=== PATIENT | male | born 1970 | race African-American/Black ===

== ENCOUNTER 2022-07-19 18:14 | Observation (INO) | payer OTHER ==
[2022-07-19] MEDS ORDERED: SODIUM CHLORIDE 1,000 ML IV STA (18:32)
[2022-07-19] MEDS ORDERED: ALBUTEROL SO4 2.5/IPRATROPIUM 0.5 INH SOL 3 ML VIAL.NEB. NEB ONE ×4 (18:32→20:42)
[2022-07-19] MEDS ORDERED: MAGNESIUM SULF 50% (8.12 MEQ/2 ML-1 GM VIAL) IVPB ONE (18:32)
[2022-07-19] MEDS ORDERED: TERBUTALINE SULFATE 1 MG/1 ML VIAL SQ ONE (18:32)
[2022-07-19] MEDS ORDERED: MAGNESIUM SULFATE IN WATER 2 GM/50 ML IVPB IVPB ONE (18:36)
[2022-07-19] MEDS: ALBUTEROL SO4 2.5/IPRATROPIUM 0.5 INH SOL 3 ML VIAL.NEB. NEB SCH ×4 (18:44→19:50)
[2022-07-19] MEDS ORDERED: DEXAMETHASONE SOD PHOSPHATE 10 MG/1 ML VIAL IVPUSH SCH (18:45)
[2022-07-19] MEDS ORDERED: DEXAMETHASONE SOD PHOSPHATE/PF 10 MG/ML SDV ONE (19:02)
[2022-07-19 19:18] LABS: HEMATOCRIT 48.5 % (35.4-49); HEMOGLOBIN 15.6 G/dL (11.7-16.9); MCH 21.6 pg (25.7-33.7); MCHC 32.2 g/dl (32.0-35.9); MEAN CELL VOLUME 67.1 fl (80-96); MEAN PLT VOLUME 9.3 fl (7.5-11.1); PLATELET COUNT 210.6 10^3/uL (134-434); WHITE BLOOD COUNT 9.9 10^3/uL (4.0-10.8)
[2022-07-19 19:24] LABS: ALBUMIN 4.3 g/dl (3.4-5.0); BILIRUBIN,TOTAL 0.6 mg/dl (0.2-1); CALCIUM 9.1 mg/dl (8.5-10); CREATININE 0.8 mg/dl (0.55-1.3); POTASSIUM 4.5 mmol/L (3.5-5.1); TOT PROT 7.8 g/dl (6.4-8.2)
[2022-07-19 19:28] LABS: RBC 7.23 10^6/uL (4.00-5.60)
[2022-07-19] MEDS ORDERED: morphine CARPU-JECT 2 MG/1 ML DISP.SYRIN IVPUSH ONE (19:37)
[2022-07-19 19:58] LABS: PLATELET ESTIMATE ADEQUATE
[2022-07-19 20:21] LABS: VENOUS BASE EXCESS 0.3 mmol/L (-2-2); VENOUS O2 SATURATION 40.7 % (70-80); VENOUS PH 7.206 (7.310-7.410)
[2022-07-19 20:25] LABS: VENOUS PCO2 80.4 mmHg (38-52)
[2022-07-19 20:35] LABS: N-TERMINAL BNP 7.5 pg/ml (5-125)
[2022-07-19] MEDS ORDERED: morphine SULFATE 4 MG/ML VIAL ONE (20:41)
[2022-07-19 23:40] LABS: VENOUS BASE EXCESS -1.2 mmol/L (-2-2); VENOUS O2 SATURATION 43.2 % (70-80); VENOUS PCO2 49.5 mmHg (38-52); VENOUS PH 7.328 (7.310-7.410)
[2022-07-19] MEDS ORDERED: ALBUTEROL SO4 2.5/IPRATROPIUM 0.5 INH SOL 3 ML VIAL.NEB. NEB PRN (23:49)
[2022-07-20 00:45] VITALS: BMI 22.1
[2022-07-20] MEDS: methylPREDNISolone NA SUCC 40 MG/1 ML VIAL IVPUSH SCH ×4 (03:00→21:37)
[2022-07-20 08:08] LABS: CALCIUM 8.7 mg/dl (8.5-10); CREATININE 0.8 mg/dl (0.55-1.3); MAGNESIUM 1.9 mg/dL (1.8-2.4); POTASSIUM 4.3 mmol/L (3.5-5.1)
[2022-07-20] MEDS: PANTOPRAZOLE 40 MG TABLET PO SCH (08:59)
[2022-07-20 09:41] LABS: HEMATOCRIT 36.9 % (35.4-49); HEMOGLOBIN 12.5 GM/dL (11.7-16.9); LYMPH % 7.8 % (8-40); MCH 21.7 pg (25.7-33.7); MCHC 33.9 g/dl (32.0-35.9); MEAN CELL VOLUME 64.1 fl (80-96); MEAN PLT VOLUME 10.2 fl (7.5-11.1); MONO % 1.5 % (3.8-10.2); NEUT % 90.7 % (42.8-82.8); PLATELET COUNT 207 10^3/uL (134-434); RBC 5.75 M/mm3 (4.00-5.60); RDW 15.6 % (11.9-15.9); WHITE BLOOD COUNT 8.7 K/mm3 (4.0-10.0)
[2022-07-20 11:56] LABS: ANISOCYTOSIS 3+; MACROCYTOSIS 0
[2022-07-20] MEDS: ALBUTEROL SO4 2.5/IPRATROPIUM 0.5 INH SOL 3 ML VIAL.NEB. NEB SCH ×2 (15:46→21:38)
[2022-07-20] MEDS: DOCUSATE SODIUM 100 MG CAPSULE (FP) PO SCH (21:41)
[2022-07-20 21:51] VITALS: RESP 18
[2022-07-20] MEDS ORDERED: MONTELUKAST NA 10 MG TABLET PO SCH (22:00)
[2022-07-21] MEDS: methylPREDNISolone NA SUCC 40 MG/1 ML VIAL IVPUSH SCH ×2 (02:27→09:24)
[2022-07-21] MEDS: ALBUTEROL SO4 2.5/IPRATROPIUM 0.5 INH SOL 3 ML VIAL.NEB. NEB SCH ×2 (02:27→09:24)
[2022-07-21] MEDS: DOCUSATE SODIUM 100 MG CAPSULE (FP) PO SCH (06:34)
[2022-07-21 07:59] LABS: ALBUMIN 3.5 g/dl (3.4-5.0); BILIRUBIN,TOTAL 0.4 mg/dl (0.2-1); CALCIUM 9.1 mg/dl (8.5-10); CREATININE 0.8 mg/dl (0.55-1.3); MAGNESIUM 1.9 mg/dL (1.8-2.4); POTASSIUM 4.9 mmol/L (3.5-5.1); TOT PROT 6.6 g/dl (6.4-8.2)
[2022-07-21] MEDS: PANTOPRAZOLE 40 MG TABLET PO SCH (09:24)
[2022-07-21 09:52] LABS: BASO % 0.1 % (0-2.0); HEMATOCRIT 37.9 % (35.4-49); HEMOGLOBIN 12.7 GM/dL (11.7-16.9); LYMPH % 6.7 % (8-40); MCH 21.3 pg (25.7-33.7); MCHC 33.4 g/dl (32.0-35.9); MEAN CELL VOLUME 63.7 fl (80-96); MEAN PLT VOLUME 10.1 fl (7.5-11.1); MONO % 3.8 % (3.8-10.2); NEUT % 89.4 % (42.8-82.8); PLATELET COUNT 213 10^3/uL (134-434); RBC 5.95 M/mm3 (4.00-5.60); RDW 15.4 % (11.9-15.9); WHITE BLOOD COUNT 11.7 K/mm3 (4.0-10.0)
[2022-07-21] MEDS ORDERED: ENOXAPARIN NA (PORCINE) 40 MG/0.4 ML DISP.SYRIN SQ SCH (10:00)
[2022-07-21 12:38] VITALS: BP 131/0; PULSE 100; TEMP 98.2
== END 2022-07-21 15:02 | disposition home or self-care (01) ==
LOC: FER 18:14 → FM/S 23:44
PROVIDERS: ADMIT Student in an Organized Health Care Education/Training Program
PROC: 3E0F7GC Introduction of Other Therapeutic Substance into Respiratory Tract, Via Natural or Artificial Opening (ICD-10-PCS; principal; 2022-07-19)
PROC: 3E0F7GC Introduction of Other Therapeutic Substance into Respiratory Tract, Via Natural or Artificial Opening (ICD-10-PCS; 2022-07-19)
PROC: 3E033GC Introduction of Other Therapeutic Substance into Peripheral Vein, Percutaneous Approach (ICD-10-PCS; 2022-07-19)
PROC: 3E023GC Introduction of Other Therapeutic Substance into Muscle, Percutaneous Approach (ICD-10-PCS; 2022-07-19)
DX: J45.998 Other asthma (principal); E78.5 Hyperlipidemia, unspecified; I10 Essential (primary) hypertension; Z29.8 Encounter for other specified prophylactic measures
CPT/HCPCS: 0241U-QW; 36415; 71045-TC-FY; 71275-TC; 80048; 80053; 82803; 83735; 83880; 84484; 85025; 85027; 93005; 94640; 96361; 96372; 96374; 96375; 99285-25; G0378; J1100; Q9967